=== PATIENT | male | born 1950 ===

== ENCOUNTER 2018-06-17 12:29 | Emergency (ER) | payer OTHER ==
[~2018-06-17] VITALS: Ht 175.3 cm; Wt 68.0 kg
[2018-06-17] MEDS ORDERED: LISINOPRIL40 MG PO (12:39)
[2018-06-17] MEDS ORDERED: INDAPAMIDE1.25 MG PO (12:39)
[2018-06-17] MEDS ORDERED: SINGULAIR 10MG10 MG PO (12:39)
[2018-06-17] MEDS ORDERED: ZYRTEC10 M3 PO (12:39)
[2018-06-17] MEDS ORDERED: QVAR8.7 G1 IH (12:40)
== END 2018-06-17 15:52 | disposition home or self-care (01) ==
LOC: ER 12:29
DX: K59.09 Other constipation (principal)

== ENCOUNTER 2018-06-18 11:24 | Outpatient (CLI) | payer OTHER ==
[~2018-06-18 11:24] MED LIST: INDAPAMIDE1.25 MG PO; LISINOPRIL40 MG PO; QVAR8.7 G1 IH; SINGULAIR 10MG10 MG PO; ZYRTEC10 M3 PO
== END 2018-06-22 11:35 | disposition home or self-care (01) ==
LOC: RX STUDY 11:24
DX: K59.09 Other constipation (principal)

== ENCOUNTER 2018-06-29 07:44 | Outpatient (CLI) | payer OTHER | END 2018-06-29 07:47 | disposition home or self-care (01) | LOC: RX STUDY 07:44 | DX: K59.09 Other constipation (principal) ==

== ENCOUNTER → 2024-04-12 10:00 | Outpatient (CLI) | payer OTHER | END | disposition home or self-care (01) | LOC: SONOGRAMA 10:00 | PROVIDERS: ATTEND Pathology Anatomic Pathology & Clinical Pathology | DX: D34 Benign neoplasm of thyroid gland (principal); E04.2 Nontoxic multinodular goiter ==